=== PATIENT | male | born 1960 | race Caucasian/White ===

== ENCOUNTER 2017-04-11 15:52 | Inpatient (IN) | payer MEDICAID ==
[~2017-04-11] VITALS: Ht 185.4 cm; Wt 75.8 kg
[2017-04-11] MEDS ORDERED: SODIUM CHLORIDE 0.9% 1,000 ML IV ONE (17:00)
[2017-04-11] MEDS ORDERED: KETOROLAC 30MG/ML VIAL IV STA (17:00)
[2017-04-11 17:29] LABS: HEMATOCRIT. 25.5 % (42.0-52.0); HEMOGLOBIN. 8.8 g/dL (14.0-18.0); MEAN CORPUSCULAR HEMOGLOBIN 42.1 pg (28.0-32.0); MEAN CORPUSCULAR VOLUME 121.8 fL (80.0-94.0); PLATELET 87 x1000/uL (130-400); RED BLOOD CELL COUNT 2.09 mill/uL (4.7-6.1); RED CELL DISTRIBUTION WIDTH 16.7 % (11.6-14.6)
[2017-04-11 17:38] LABS: INR 2.1; PROTHROMBIN TIME 22.3 sec (9.4-11.6)
[2017-04-11 17:39] LABS: CARBON DIOXIDE 23 mEq/L (21-32); CHLORIDE 99 mEq/L (98-107)
[2017-04-11 18:07] LABS: PLATELET ESTIMATE MARKEDLY DECREASED
[2017-04-11] MEDS ORDERED: SODIUM CHLORIDE 0.9% 1,000 ML IV SCH (19:04)
[2017-04-11] MEDS ORDERED: IBUPROFEN 600MG TABLET PO PRN (19:15)
[2017-04-11] MEDS ORDERED: ACETAMINOPHEN 325MG TABLET PO PRN (19:15)
[2017-04-11 20:57] LABS: CLARITY URINE CLOUDY (CLEAR); COLOR URINE ORANGE (YELLOW); GLUCOSE URINE NEGATIVE (NEGATIVE); KETONES URINE NEGATIVE (NEGATIVE); LEUKOCYTE ESTERASE URINE 2+ (NEGATIVE); NITRITE URINE POSITIVE (NEGATIVE); OCCULT BLOOD URINE NEGATIVE (NEGATIVE); PH URINE 5.5 (4.5-8.0); PROTEIN URINE NEGATIVE (NEGATIVE); SPECIFIC GRAVITY URINE 1.023 (1.005-1.030)
[2017-04-11 22:00] VITALS: BP 141/73
[2017-04-11 22:20] VITALS: BP 141/73
[2017-04-12] VITALS (12 sets, daily range): BP systolic 113–155; BP diastolic 59–92
[2017-04-12] MEDS ORDERED: ONDANSETRON HCL 4MG/2ML VIAL IV PRN (01:30)
[2017-04-12 03:29] LABS: HEMATOCRIT. 23.9 % (42.0-52.0); HEMOGLOBIN. 8.2 g/dL (14.0-18.0); MEAN CORPUSCULAR HEMOGLOBIN 41.6 pg (28.0-32.0); MEAN CORPUSCULAR VOLUME 121.7 fL (80.0-94.0); MEAN PLATELET VOLUME 8.9 fl (7.4-10.4); PLATELET 85 x1000/uL (130-400); RED BLOOD CELL COUNT 1.96 mill/uL (4.7-6.1); RED CELL DISTRIBUTION WIDTH 16.4 % (11.6-14.6)
[2017-04-12 03:37] LABS: INR 2.2; PROTHROMBIN TIME 23.4 sec (9.4-11.6)
[2017-04-12 03:45] LABS: CARBON DIOXIDE 25 mEq/L (21-32); CHLORIDE 100 mEq/L (98-107)
[2017-04-12] MEDS ORDERED: OMEPRAZOLE 20MG CAPSULE EXTENDED RELEASE PO SCH (07:10)
[2017-04-12 07:48] LABS: PLATELET ESTIMATE DECREASED
[2017-04-12] MEDS: SPIRONOLACTONE 100MG TABLET PO SCH (09:28)
[2017-04-12] MEDS: FUROSEMIDE 40MG/4ML VIAL IVP SCH ×2 (09:29→21:56)
[2017-04-12] MEDS ORDERED: FOLIC ACID 1 MG, THIAMINE HCL 100 MG, MVI, ADULT NO.1 10 ML in DEXTROSE 5% WATER 1,000 ML IV ONE ×4 (10:30)
[2017-04-12 11:07] LABS: INR 1.7; PROTHROMBIN TIME 17.6 sec (9.4-11.6)
[2017-04-12] MEDS: CEFTRIAXONE 1 G PREMIX 50 ML IV SCH (11:16)
[2017-04-12 12:49] LABS: AMMONIA 104 uMol/L (<32)
[2017-04-12] MEDS: CHLORDIAZEPOXIDE 25MG CAPSULE PO SCH ×2 (14:41→21:56)
[2017-04-12] MEDS: PANTOPRAZOLE SODIUM 40 MG/VIAL IV SCH (17:02)
[2017-04-12] MEDS: PROPRANOLOL HCL 10MG TABLET PO SCH (23:06)
[2017-04-13] VITALS (10 sets, daily range): BP systolic 115–150; BP diastolic 39–99
[2017-04-13] MEDS: CHLORDIAZEPOXIDE 25MG CAPSULE PO SCH ×3 (05:46→22:29)
[2017-04-13] MEDS: PANTOPRAZOLE SODIUM 40 MG/VIAL IV SCH ×2 (05:46→17:20)
[2017-04-13] MEDS: FUROSEMIDE 40MG/4ML VIAL IVP SCH ×2 (09:08→20:46)
[2017-04-13] MEDS: PROPRANOLOL HCL 10MG TABLET PO SCH ×2 (09:09→21:17)
[2017-04-13] MEDS: CEFTRIAXONE 1 G PREMIX 50 ML IV SCH (09:37)
[2017-04-13] MEDS: SPIRONOLACTONE 100MG TABLET PO SCH (09:40)
[2017-04-13] MEDS: LACTULOSE 20G/30ML UDC PO SCH ×2 (15:08→22:29)
[2017-04-13] MEDS: MORPHINE SULFATE 4 MG/ML CPJ (NOT FOR IM USE) IV PRN (15:16)
[2017-04-13 17:36] LABS: AMMONIA 32 uMol/L (<32)
[2017-04-14] VITALS (12 sets, daily range): BP systolic 113–156; BP diastolic 49–89
[2017-04-14] MEDS: PANTOPRAZOLE SODIUM 40 MG/VIAL IV SCH ×2 (05:48→17:13)
[2017-04-14] MEDS: CHLORDIAZEPOXIDE 25MG CAPSULE PO SCH ×4 (05:58→22:00)
[2017-04-14] MEDS: LACTULOSE 20G/30ML UDC PO SCH ×4 (05:58→22:00)
[2017-04-14 06:29] LABS: INR 1.9; PROTHROMBIN TIME 20.4 sec (9.4-11.6)
[2017-04-14 06:57] LABS: BASOPHILS % 0.3 % (0.0-2.0); EOSINOPHILS % 0.6 % (0.0-5.0); HEMATOCRIT. 24.1 % (42.0-52.0); HEMOGLOBIN. 8.2 g/dL (14.0-18.0); LYMPHOCYTES % 7.4 % (20.0-50.0); MEAN CORPUSCULAR HEMOGLOBIN 41.9 pg (28.0-32.0); MEAN CORPUSCULAR VOLUME 122.5 fL (80.0-94.0); MONOCYTES % 14.9 % (2.0-8.0); NEUTROPHILS % 76.8 % (40.0-76.0); RED BLOOD CELL COUNT 1.97 mill/uL (4.7-6.1); RED CELL DISTRIBUTION WIDTH 16.7 % (11.6-14.6)
[2017-04-14] MEDS: FUROSEMIDE 40MG/4ML VIAL IVP SCH ×2 (08:47→21:02)
[2017-04-14] MEDS: SPIRONOLACTONE 100MG TABLET PO SCH (08:47)
[2017-04-14] MEDS: PROPRANOLOL HCL 10MG TABLET PO SCH ×2 (08:48→21:00)
[2017-04-14] MEDS: CEFTRIAXONE 1 G PREMIX 50 ML IV SCH (09:47)
[2017-04-14 10:38] LABS: PLATELET ESTIMATE DECREASED
[2017-04-14 10:39] LABS: PLATELET 76 x1000/uL (130-400)
[2017-04-14] MEDS: MORPHINE SULFATE 4 MG/ML CPJ (NOT FOR IM USE) IV PRN (12:06)
[2017-04-14] MEDS: DEXT 5%/0.45% NACL KCL 20MEQ/L 1,000 ML IV SCH (19:53)
[2017-04-15] VITALS (13 sets, daily range): BP systolic 97–157; BP diastolic 55–79
[2017-04-15] MEDS: PANTOPRAZOLE SODIUM 40 MG/VIAL IV SCH ×2 (05:18→18:29)
[2017-04-15] MEDS: CHLORDIAZEPOXIDE 25MG CAPSULE PO SCH ×3 (05:25→22:00)
[2017-04-15] MEDS: LACTULOSE 20G/30ML UDC PO SCH ×3 (05:25→22:00)
[2017-04-15 06:29] LABS: INR 2.1; PARTIAL THROMBOPLASTIN TIME 40.8 sec (23.4-31.0)
[2017-04-15] MEDS: DEXT 5%/0.45% NACL KCL 20MEQ/L 1,000 ML IV SCH (06:29)
[2017-04-15 06:42] LABS: HEMATOCRIT 23.8 % (42.0-52.0); HEMOGLOBIN 8.1 g/dL (14.0-18.0); MEAN CORPUSCULAR HEMOGLOBIN 41.4 pg (28.0-32.0); MEAN CORPUSCULAR VOLUME 121.1 fL (80.0-94.0); PLATELET 75 x1000/uL (130-400); RED BLOOD CELL COUNT 1.97 mill/uL (4.7-6.1)
[2017-04-15 07:50] LABS: AMMONIA 34 uMol/L (<32)
[2017-04-15] MEDS: PROPRANOLOL HCL 10MG TABLET PO SCH ×2 (09:00→21:00)
[2017-04-15] MEDS: SPIRONOLACTONE 100MG TABLET PO SCH (09:00)
[2017-04-15] MEDS: FUROSEMIDE 40MG/4ML VIAL IVP SCH ×2 (09:33→22:09)
[2017-04-15] MEDS: MORPHINE SULFATE 4 MG/ML CPJ (NOT FOR IM USE) IV PRN ×2 (09:41→16:24)
[2017-04-15] MEDS: CEFTRIAXONE 1 G PREMIX 50 ML IV SCH (10:30)
[2017-04-15] MEDS ORDERED: PHYTONADIONE 10MG/ML AMP SUBCUT NR ×2 (13:45→20:00)
[2017-04-16] VITALS: BP 132/79
[2017-04-16 00:30] VITALS: BP 95/55
[2017-04-16] MEDS: DEXT 5%/0.45% NACL KCL 20MEQ/L 1,000 ML IV SCH ×2 (01:36→14:51)
[2017-04-16 04:00] VITALS: BP 107/61
[2017-04-16] MEDS: LACTULOSE 20G/30ML UDC PO SCH ×3 (05:06→22:00)
[2017-04-16] MEDS: CHLORDIAZEPOXIDE 25MG CAPSULE PO SCH ×3 (05:06→22:00)
[2017-04-16] MEDS: PANTOPRAZOLE SODIUM 40 MG/VIAL IV SCH ×2 (05:17→18:42)
[2017-04-16 07:25] LABS: INR 1.9; PARTIAL THROMBOPLASTIN TIME 40.8 sec (23.4-31.0); PROTHROMBIN TIME 19.4 sec (9.4-11.6)
[2017-04-16 07:30] LABS: AMMONIA 19 uMol/L (<32)
[2017-04-16 08:43] LABS: HEMOGLOBIN 7.9 g/dL (14.0-18.0); MEAN CORPUSCULAR HEMOGLOBIN 41.5 pg (28.0-32.0); MEAN CORPUSCULAR VOLUME 120.8 fL (80.0-94.0); RED CELL DISTRIBUTION WIDTH 16.9 % (11.6-14.6)
[2017-04-16] MEDS: PROPRANOLOL HCL 10MG TABLET PO SCH ×2 (09:00→21:00)
[2017-04-16] MEDS: SPIRONOLACTONE 100MG TABLET PO SCH (09:00)
[2017-04-16 11:28] VITALS: BP 134/72
[2017-04-16] MEDS: FUROSEMIDE 40MG/4ML VIAL IVP SCH ×2 (11:29→22:45)
[2017-04-16] MEDS: MORPHINE SULFATE 4 MG/ML CPJ (NOT FOR IM USE) IV PRN ×2 (11:32→21:10)
[2017-04-16] MEDS ORDERED: SODIUM BICARBONATE 4.2% 5 MEQ/10 ML DISP.SYRIN IV ONE (12:54)
[2017-04-16] MEDS ORDERED: LIDOCAINE HCL 1% 20ML VIAL (Pyxis) INJ ONE (12:54)
[2017-04-16] MEDS: CEFTRIAXONE 1 G PREMIX 50 ML IV SCH (13:32)
[2017-04-16 15:02] VITALS: BP 103/52
[2017-04-16 20:00] VITALS: BP 110/51
[2017-04-17] VITALS: BP 116/63
[2017-04-17 04:00] VITALS: BP 128/71
[2017-04-17] MEDS: CHLORDIAZEPOXIDE 25MG CAPSULE PO SCH ×2 (06:00→14:00)
[2017-04-17] MEDS: LACTULOSE 20G/30ML UDC PO SCH ×3 (06:00→22:27)
[2017-04-17] MEDS: PANTOPRAZOLE SODIUM 40 MG/VIAL IV SCH ×2 (07:05→19:24)
[2017-04-17] MEDS: DEXT 5%/0.45% NACL KCL 20MEQ/L 1,000 ML IV SCH ×4 (07:37→19:24)
[2017-04-17 08:00] VITALS: BP 112/54
[2017-04-17] MEDS: PROPRANOLOL HCL 10MG TABLET PO SCH ×2 (09:00→21:00)
[2017-04-17] MEDS: SPIRONOLACTONE 100MG TABLET PO SCH (09:00)
[2017-04-17] MEDS: CEFTRIAXONE 1 G PREMIX 50 ML IV SCH (11:04)
[2017-04-17] MEDS: FUROSEMIDE 40MG/4ML VIAL IVP SCH ×2 (11:04→21:23)
[2017-04-17 12:00] VITALS: BP 120/50
[2017-04-17 16:00] VITALS: BP 103/60
[2017-04-17 17:38] LABS: INR 1.9; PARTIAL THROMBOPLASTIN TIME 49.2 sec (23.4-31.0); PROTHROMBIN TIME 20.1 sec (9.4-11.6)
[2017-04-17 17:42] LABS: HEMATOCRIT 22.4 % (42.0-52.0); HEMOGLOBIN 7.7 g/dL (14.0-18.0); MEAN CORPUSCULAR HEMOGLOBIN 41.5 pg (28.0-32.0); RED BLOOD CELL COUNT 1.87 mill/uL (4.7-6.1); RED CELL DISTRIBUTION WIDTH 16.6 % (11.6-14.6)
[2017-04-17 19:46] VITALS: BP 103/57
[2017-04-18 00:31] VITALS: BP 113/65
[2017-04-18 05:08] VITALS: BP 119/78
[2017-04-18] MEDS: LACTULOSE 20G/30ML UDC PO SCH ×3 (06:00→22:00)
[2017-04-18] MEDS: PANTOPRAZOLE SODIUM 40 MG/VIAL IV SCH ×2 (06:52→18:00)
[2017-04-18 07:24] LABS: INR 1.9; PARTIAL THROMBOPLASTIN TIME 45.8 sec (23.4-31.0); PROTHROMBIN TIME 19.7 sec (9.4-11.6)
[2017-04-18 08:00] VITALS: BP 106/57
[2017-04-18] MEDS: SPIRONOLACTONE 100MG TABLET PO SCH (08:42)
[2017-04-18] MEDS: FUROSEMIDE 40MG/4ML VIAL IVP SCH ×2 (08:42→23:15)
[2017-04-18] MEDS: PROPRANOLOL HCL 10MG TABLET PO SCH ×2 (08:43→21:00)
[2017-04-18] MEDS: DEXT 5%/0.45% NACL KCL 20MEQ/L 1,000 ML IV SCH ×2 (09:14→14:00)
[2017-04-18] MEDS: MORPHINE SULFATE 4 MG/ML CPJ (NOT FOR IM USE) IV PRN (09:24)
[2017-04-18 09:54] LABS: HEMATOCRIT 23.5 % (42.0-52.0); HEMOGLOBIN 8.3 g/dL (14.0-18.0); MEAN CORPUSCULAR VOLUME 119.5 fL (80.0-94.0); RED BLOOD CELL COUNT 1.97 mill/uL (4.7-6.1); RED CELL DISTRIBUTION WIDTH 16.8 % (11.6-14.6)
[2017-04-18 10:05] LABS: PLATELET 46 x1000/uL (130-400)
[2017-04-18 10:34] LABS: PLATELET 47 x1000/uL (130-400)
[2017-04-18] MEDS: CEFTRIAXONE 1 G PREMIX 50 ML IV SCH (11:14)
[2017-04-18 12:00] VITALS: BP 131/71
[2017-04-18 16:00] VITALS: BP 124/77
[2017-04-18 20:00] VITALS: BP 146/76
[2017-04-19] VITALS: BP 127/62
[2017-04-19 04:00] VITALS: BP 130/69
[2017-04-19 05:18] LABS: INR 1.8; PARTIAL THROMBOPLASTIN TIME 40.8 sec (23.4-31.0)
[2017-04-19] MEDS: LACTULOSE 20G/30ML UDC PO SCH ×2 (06:00→13:09)
[2017-04-19 06:36] LABS: HEMATOCRIT 24.6 % (42.0-52.0); HEMOGLOBIN 8.6 g/dL (14.0-18.0); MEAN CORPUSCULAR HEMOGLOBIN 42.3 pg (28.0-32.0); RED BLOOD CELL COUNT 2.04 mill/uL (4.7-6.1); RED CELL DISTRIBUTION WIDTH 17.1 % (11.6-14.6)
[2017-04-19] MEDS: PANTOPRAZOLE SODIUM 40 MG/VIAL IV SCH ×2 (06:40→17:59)
[2017-04-19 08:00] VITALS: BP 146/77
[2017-04-19] MEDS: FUROSEMIDE 40MG/4ML VIAL IVP SCH (09:25)
[2017-04-19] MEDS: SPIRONOLACTONE 100MG TABLET PO SCH (09:36)
[2017-04-19] MEDS: PROPRANOLOL HCL 10MG TABLET PO SCH (09:40)
[2017-04-19] MEDS: CEFTRIAXONE 1 G PREMIX 50 ML IV SCH (11:22)
[2017-04-19] MEDS: DEXT 5%/0.45% NACL KCL 20MEQ/L 1,000 ML IV SCH ×2 (11:24)
[2017-04-19] MEDS ORDERED: MORPHINE SULFATE 4 MG/ML CPJ (NOT FOR IM USE) IV PRN (11:45)
[2017-04-19 12:00] VITALS: BP 118/74
[2017-04-19 12:57] LABS: PLATELET 46 x1000/uL (130-400)
[2017-04-19 16:00] VITALS: BP 119/72
[2017-04-19 20:00] VITALS: BP 142/77
[2017-04-20] VITALS: BP 144/81
[2017-04-20] MEDS: FUROSEMIDE 40MG/4ML VIAL IVP SCH ×3 (00:53→23:59)
[2017-04-20] MEDS: DEXT 5%/0.45% NACL KCL 20MEQ/L 1,000 ML IV SCH ×3 (00:53→17:58)
[2017-04-20] MEDS: LACTULOSE 20G/30ML UDC PO SCH ×4 (00:53→23:59)
[2017-04-20] MEDS: PROPRANOLOL HCL 10MG TABLET PO SCH ×2 (00:59→09:00)
[2017-04-20 04:00] VITALS: BP 151/83
[2017-04-20] MEDS: PANTOPRAZOLE SODIUM 40 MG/VIAL IV SCH ×2 (07:51→17:58)
[2017-04-20 08:00] VITALS: BP 132/77
[2017-04-20] MEDS: SPIRONOLACTONE 100MG TABLET PO SCH (09:00)
[2017-04-20 16:00] VITALS: BP_SYST 116; BP_SYST 145; BP_DIAS 71
[2017-04-20 20:00] VITALS: BP 140/80
[2017-04-21] VITALS: BP 149/77
[2017-04-21 04:00] VITALS: BP 135/73
[2017-04-21] MEDS: DEXT 5%/0.45% NACL KCL 20MEQ/L 1,000 ML IV SCH ×2 (04:30→15:06)
[2017-04-21] MEDS: LACTULOSE 20G/30ML UDC PO SCH ×3 (07:44→21:43)
[2017-04-21] MEDS: PANTOPRAZOLE SODIUM 40 MG/VIAL IV SCH ×2 (07:45→18:13)
[2017-04-21 08:00] VITALS: BP 120/67
[2017-04-21] MEDS: PROPRANOLOL HCL 10MG TABLET PO SCH ×3 (09:21→21:00)
[2017-04-21] MEDS: SPIRONOLACTONE 100MG TABLET PO SCH (09:21)
[2017-04-21] MEDS: FUROSEMIDE 40MG/4ML VIAL IVP SCH ×2 (09:25→21:39)
[2017-04-21 10:08] LABS: BASOPHILS % 0.3 % (0.0-2.0); EOSINOPHILS % 1.6 % (0.0-5.0); HEMATOCRIT. 24.7 % (42.0-52.0); HEMOGLOBIN. 8.3 g/dL (14.0-18.0); LYMPHOCYTES % 8.9 % (20.0-50.0); MEAN CORPUSCULAR HEMOGLOBIN 41.5 pg (28.0-32.0); MEAN PLATELET VOLUME 11.2 fl (7.4-10.4); MONOCYTES % 14.6 % (2.0-8.0); NEUTROPHILS % 74.6 % (40.0-76.0); RED BLOOD CELL COUNT 2.01 mill/uL (4.7-6.1); RED CELL DISTRIBUTION WIDTH 16.5 % (11.6-14.6)
[2017-04-21 10:14] LABS: INR 1.9; PARTIAL THROMBOPLASTIN TIME 39.2 sec (23.4-31.0); PROTHROMBIN TIME 19.4 sec (9.4-11.6)
[2017-04-21 10:15] LABS: AMMONIA 77 uMol/L (<32)
[2017-04-21 10:20] LABS: CARBON DIOXIDE 27 mEq/L (21-32); CHLORIDE 111 mEq/L (98-107)
[2017-04-21 10:31] LABS: PLATELET 36 x1000/uL (130-400)
[2017-04-21 12:00] VITALS: BP 138/69
[2017-04-21 16:00] VITALS: BP 130/77
[2017-04-21 20:00] VITALS: BP 143/73
[2017-04-22] VITALS: BP 129/79
[2017-04-22 04:00] VITALS: BP 140/75
[2017-04-22] MEDS: PANTOPRAZOLE SODIUM 40 MG/VIAL IV SCH ×2 (06:12→17:26)
[2017-04-22] MEDS: LACTULOSE 20G/30ML UDC PO SCH ×3 (06:12→22:00)
[2017-04-22] MEDS: DEXT 5%/0.45% NACL KCL 20MEQ/L 1,000 ML IV SCH ×3 (07:00→17:27)
[2017-04-22 08:00] VITALS: BP 126/80
[2017-04-22] MEDS: FUROSEMIDE 40MG/4ML VIAL IVP SCH ×2 (09:02→22:24)
[2017-04-22] MEDS: SPIRONOLACTONE 100MG TABLET PO SCH (09:09)
[2017-04-22] MEDS: PROPRANOLOL HCL 10MG TABLET PO SCH ×2 (09:10→21:00)
[2017-04-22 12:00] VITALS: BP 104/71
[2017-04-22 16:00] VITALS: BP 120/62
[2017-04-22 20:00] VITALS: BP 121/85
[2017-04-23] VITALS: BP 143/83
[2017-04-23 04:00] VITALS: BP 110/65
[2017-04-23] MEDS: LACTULOSE 20G/30ML UDC PO SCH ×5 (06:00→22:00)
[2017-04-23 07:10] LABS: HEMOGLOBIN 8.6 g/dL (14.0-18.0); MEAN CORPUSCULAR HEMOGLOBIN 41.2 pg (28.0-32.0); MEAN CORPUSCULAR VOLUME 124.8 fL (80.0-94.0); RED BLOOD CELL COUNT 2.09 mill/uL (4.7-6.1); RED CELL DISTRIBUTION WIDTH 16.5 % (11.6-14.6)
[2017-04-23 07:24] LABS: PLATELET 37 x1000/uL (130-400)
[2017-04-23 07:31] LABS: AMMONIA 102 uMol/L (<32)
[2017-04-23] MEDS: PANTOPRAZOLE SODIUM 40 MG/VIAL IV SCH ×2 (07:33→17:58)
[2017-04-23 08:00] VITALS: BP 143/73
[2017-04-23] MEDS ORDERED: LACTULOSE 300 ML in WATER FOR INJECTION,STERILE 700 ML PR SCH ×2 (09:00→17:00)
[2017-04-23] MEDS: PROPRANOLOL HCL 10MG TABLET PO SCH ×2 (09:00→21:00)
[2017-04-23] MEDS: SPIRONOLACTONE 100MG TABLET PO SCH (09:00)
[2017-04-23] MEDS: FUROSEMIDE 40MG/4ML VIAL IVP SCH ×2 (09:06→22:25)
[2017-04-23 12:00] VITALS: BP 152/71
[2017-04-23] MEDS: DEXT 5%/0.45% NACL KCL 20MEQ/L 1,000 ML IV SCH (14:18)
[2017-04-23 16:00] VITALS: BP 146/62
[2017-04-23 20:36] VITALS: BP 127/72
[2017-04-23] MEDS: LACTULOSE 300 ML in WATER FOR INJECTION,STERILE 700 ML PR SCH (22:17)
[2017-04-24 00:38] VITALS: BP 163/73
[2017-04-24 04:00] VITALS: BP 147/79
[2017-04-24] MEDS: DEXT 5%/0.45% NACL KCL 20MEQ/L 1,000 ML IV SCH ×3 (04:23→19:40)
[2017-04-24] MEDS: LACTULOSE 20G/30ML UDC PO SCH ×3 (05:27→21:49)
[2017-04-24] MEDS: PANTOPRAZOLE SODIUM 40 MG/VIAL IV SCH ×2 (05:32→18:24)
[2017-04-24 06:48] LABS: AMMONIA 31 uMol/L (<32)
[2017-04-24 08:00] VITALS: BP 130/73
[2017-04-24] MEDS: PROPRANOLOL HCL 10MG TABLET PO SCH ×2 (09:00→21:00)
[2017-04-24] MEDS: SPIRONOLACTONE 100MG TABLET PO SCH (09:00)
[2017-04-24] MEDS: FUROSEMIDE 40MG/4ML VIAL IVP SCH ×2 (09:36→21:48)
[2017-04-24] MEDS: LACTULOSE 300 ML in WATER FOR INJECTION,STERILE 700 ML PR SCH (10:49)
[2017-04-24 12:00] VITALS: BP 146/71
[2017-04-24 16:00] VITALS: BP 163/60
[2017-04-24 20:00] VITALS: BP 129/68
[2017-04-25] VITALS: BP 106/67
[2017-04-25] MEDS: DEXT 5%/0.45% NACL KCL 20MEQ/L 1,000 ML IV SCH ×3 (01:07→22:10)
[2017-04-25 04:00] VITALS: BP 141/78
[2017-04-25] MEDS: PANTOPRAZOLE SODIUM 40 MG/VIAL IV SCH ×2 (05:59→18:26)
[2017-04-25 06:43] LABS: BASOPHILS % 0.1 % (0.0-2.0); EOSINOPHILS % 0.6 % (0.0-5.0); HEMATOCRIT. 24.1 % (42.0-52.0); HEMOGLOBIN. 7.9 g/dL (14.0-18.0); LYMPHOCYTES % 6.8 % (20.0-50.0); MEAN CORPUSCULAR HEMOGLOBIN 40.9 pg (28.0-32.0); MEAN CORPUSCULAR VOLUME 124.9 fL (80.0-94.0); MEAN PLATELET VOLUME 12.3 fl (7.4-10.4); MONOCYTES % 6.8 % (2.0-8.0); NEUTROPHILS % 85.7 % (40.0-76.0); RED BLOOD CELL COUNT 1.93 mill/uL (4.7-6.1); RED CELL DISTRIBUTION WIDTH 15.8 % (11.6-14.6)
[2017-04-25 06:50] LABS: PLATELET 42 x1000/uL (130-400)
[2017-04-25 07:01] LABS: CARBON DIOXIDE 27 mEq/L (21-32); CHLORIDE 113 mEq/L (98-107)
[2017-04-25 08:00] VITALS: BP 135/70
[2017-04-25 08:59] LABS: PLATELET ESTIMATE MARKEDLY DECREASED
[2017-04-25] MEDS: PROPRANOLOL HCL 10MG TABLET PO SCH ×2 (09:00→21:00)
[2017-04-25] MEDS: SPIRONOLACTONE 100MG TABLET PO SCH (09:00)
[2017-04-25] MEDS: FUROSEMIDE 40MG/4ML VIAL IVP SCH ×2 (09:56→21:45)
[2017-04-25 10:09] LABS: AMMONIA 46 uMol/L (<32)
[2017-04-25 12:00] VITALS: BP 130/90
[2017-04-25] MEDS: LACTULOSE 300 ML in WATER FOR INJECTION,STERILE 700 ML PR SCH (12:48)
[2017-04-25] MEDS: LACTULOSE 20G/30ML UDC PO SCH ×2 (13:04→21:47)
[2017-04-25 16:00] VITALS: BP 135/90
[2017-04-25] MEDS: MORPHINE SULFATE 4 MG/ML CPJ (NOT FOR IM USE) IV SCH ×3 (16:12→23:39)
[2017-04-25 20:00] VITALS: BP 109/60
[2017-04-26] VITALS: BP 126/74
[2017-04-26] MEDS: DEXT 5%/0.45% NACL KCL 20MEQ/L 1,000 ML IV SCH (02:26)
[2017-04-26] MEDS: MORPHINE SULFATE 4 MG/ML CPJ (NOT FOR IM USE) IV SCH ×3 (03:34→11:07)
[2017-04-26 04:00] VITALS: BP 109/65
[2017-04-26] MEDS: LACTULOSE 20G/30ML UDC PO SCH (06:00)
[2017-04-26 07:15] VITALS: BP 109/65
[2017-04-26] MEDS: PANTOPRAZOLE SODIUM 40 MG/VIAL IV SCH (07:15)
[2017-04-26] MEDS: FUROSEMIDE 40MG/4ML VIAL IVP SCH (10:20)
[2017-04-26] MEDS: SPIRONOLACTONE 100MG TABLET PO SCH (10:20)
[2017-04-26] MEDS: LACTULOSE 300 ML in WATER FOR INJECTION,STERILE 700 ML PR SCH (10:20)
[2017-04-26] MEDS: PROPRANOLOL HCL 10MG TABLET PO SCH (10:20)
== END 2017-04-26 11:15 | disposition expired | DRG 280 ==
LOC: ER 16:58 → 8WST 19:05 → ENRESERV 19:48 → 3WST 04-12 18:19 → 6EST 04-14 22:30
PROVIDERS: ADMIT Internal Medicine; ATTEND Internal Medicine
PROC: 30233L1 Transfusion of Nonautologous Fresh Plasma into Peripheral Vein, Percutaneous Approach (ICD-10-PCS; 2017-04-12)
PROC: 30233K1 Transfusion of Nonautologous Frozen Plasma into Peripheral Vein, Percutaneous Approach (ICD-10-PCS; 2017-04-12)
PROC: 30233L1 Transfusion of Nonautologous Fresh Plasma into Peripheral Vein, Percutaneous Approach (ICD-10-PCS; 2017-04-15)
PROC: 30233K1 Transfusion of Nonautologous Frozen Plasma into Peripheral Vein, Percutaneous Approach (ICD-10-PCS; 2017-04-15)
PROC: 0W9G3ZZ Drainage of Peritoneal Cavity, Percutaneous Approach (ICD-10-PCS; principal; 2017-04-16)
DX: K70.31 Alcoholic cirrhosis of liver with ascites (principal); G93.40 Encephalopathy, unspecified; N17.9 Acute kidney failure, unspecified; K72.90 Hepatic failure, unspecified without coma; I95.9 Hypotension, unspecified; K85.90 Acute pancreatitis without necrosis or infection, unspecified; D68.9 Coagulation defect, unspecified; N18.6 End stage renal disease; I85.00 Esophageal varices without bleeding; K76.6 Portal hypertension; D69.6 Thrombocytopenia, unspecified; K57.30 Diverticulosis of large intestine without perforation or abscess without bleeding; K80.20 Calculus of gallbladder without cholecystitis without obstruction; D63.8 Anemia in other chronic diseases classified elsewhere; K52.9 Noninfective gastroenteritis and colitis, unspecified; D53.9 Nutritional anemia, unspecified; Z66 Do not resuscitate; Z51.5 Encounter for palliative care; K82.8 Other specified diseases of gallbladder; N39.0 Urinary tract infection, site not specified
CPT/HCPCS: 36415; 49083; 74176; 76705; 80048; 80053; 80076; 81001; 82140; 82270; 83690; 85025; 85027; 85610; 85730; 86850; 86900; 86927; 87015; 87045; 87070; 87205; 87427; 87449; 87493; 89050; 89055; 92610; 93005; 96374; 97162; 97167; 99285; A6261; C1893; C9113; J0696; J1885; J1940; J2270; J3411; J3430; J3490; J7030; J7040; J7070; P9017